=== PATIENT | female | born 1945 | race Caucasian/White ===

== ENCOUNTER 2017-11-24 10:45 | Emergency (ER) | payer OTHER, MEDICARE ==
[2017-11-24 11:16] LABS: Glucose,Whole Blood 142 mg/dL (75-99)
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
[2017-11-24 12:13] LABS: Glucose,Whole Blood 147 mg/dL (75-99)
[2017-11-24 12:45] VITALS: BP 124/78; PULSE 84; RESP 16; TEMP 98
== END 2017-11-24 12:45 | disposition home or self-care (01) ==
LOC: EC 10:45
DX: E11.649 Type 2 diabetes mellitus with hypoglycemia without coma (principal); F17.200 Nicotine dependence, unspecified, uncomplicated; Z79.4 Long term (current) use of insulin; Z88.0 Allergy status to penicillin; Z88.5 Allergy status to narcotic agent; Z88.8 Allergy status to other drugs, medicaments and biological substances; V47.5XXA Car driver injured in collision with fixed or stationary object in traffic accident, initial encounter; Y92.410 Unspecified street and highway as the place of occurrence of the external cause
CPT/HCPCS: 36415; 99284